=== PATIENT | female | born 1960 | race Caucasian/White ===

== ENCOUNTER → 2020-07-22 | Outpatient (CLI) | payer OTHER | LOC: MAMO 12:57 | DX: Z12.31 Encounter for screening mammogram for malignant neoplasm of breast (principal); N63.14 Unspecified lump in the right breast, lower inner quadrant | CPT/HCPCS: 77063; 77067 ==

== ENCOUNTER → 2020-08-16 | Outpatient (CLI) | payer OTHER | LOC: KOH-I 14:00 | DX: F17.210 Nicotine dependence, cigarettes, uncomplicated (principal); R91.8 Other nonspecific abnormal finding of lung field | CPT/HCPCS: 71271 ==

== ENCOUNTER → 2020-08-26 | Outpatient (CLI) | payer OTHER | LOC: MAMO 13:16 | DX: R92.2 Inconclusive mammogram (principal) | CPT/HCPCS: 76641-RT; 77065; G0279 ==